=== PATIENT | female | born 1990 | race Caucasian/White ===

== ENCOUNTER 2021-08-06 14:36 | Inpatient (IN) | payer BC, OTHER ==
[~2021-08-06] VITALS: Ht 175.3 cm; Wt 99.0 kg
[2021-08-06] MEDS ORDERED: PLEASE ENTER HEIGHT AND WEIGHT MC SCH ×2 (14:53→15:00)
[2021-08-06] MEDS ORDERED: TERBUTALINE 1 MG/ML, 1ML SQ PRN (15:00)
[2021-08-06] MEDS ORDERED: ONDANSETRON 2MG/ML, 2ML IVPush PRN (15:00)
[2021-08-06] MEDS ORDERED: OXYTOCIN 30U/ 0.9% NaCL 500ML 500 ML IV ONE (15:00)
[2021-08-06] MEDS ORDERED: SODIUM CHLORIDE FLUSH 10ML SYR IVF PRN (15:00)
[2021-08-06] MEDS ORDERED: FENTANYL PF 100 MCG/2ML IV PRN (15:00)
[2021-08-06] MEDS ORDERED: LACTATED RINGERS 1,000 ML IV SCH (15:00)
[2021-08-06] MEDS ORDERED: TERBUTALINE 1 MG/ML, 1ML IVPush PRN (15:00)
[2021-08-06 15:17] LABS: BASOPHILS % (AUTO) 0 % (0-1); EOSINOPHILS % (AUTO) 0 % (1-7); LYMPHOCYTES % (AUTO) 22 % (22-44); MEAN CORPUSCULAR HEMOGLOBIN 32.1 pg (27.0-34.8); MEAN CORPUSCULAR HGB CONC 35.7 g/dL (32.4-35.8); MEAN PLATELET VOLUME 6.8 fL (7.4-10.4); MONOCYTES % (AUTO) 7 % (2-9); NEUTROPHILS % (AUTO) 70 % (42-75); PLATELET COUNT 259 x10^3/uL (130-400); RED BLOOD COUNT 4.09 x10^6/uL (3.82-5.3); RED CELL DISTRIBUTION WIDTH 13.5 % (9.6-15.2)
[2021-08-06 15:24] LABS: MICROSCOPIC INDICATED
[2021-08-06 15:25] LABS: ALANINE AMINOTRANSFERASE 23 U/L (12-78); ANION GAP 9 mmol/L (5-15); CALCIUM 8.2 mg/dL (8.5-10.1); CHLORIDE 110 mmol/L (98-107); CREATININE 0.57 mg/dL (0.55-1.02)
[2021-08-06 15:27] LABS: ALKALINE PHOSPHATASE 139 U/L (45-117); BILIRUBIN,TOTAL 0.1 mg/dL (0.2-1.0); TOTAL PROTEIN 6.6 g/dL (6.4-8.2)
[2021-08-06] MEDS ORDERED: MISOPROSTOL 200 MCG TABLET ONE (16:12)
[2021-08-06] MEDS ORDERED: LIDOCAINE 1%, 20ML ONE (16:12)
[2021-08-06] MEDS ORDERED: MISOPROSTOL 25 MCG TABLET ONE (16:12)
[2021-08-06] MEDS ORDERED: NEWBORN KIT ONE (16:12)
[2021-08-06] MEDS: MISOPROSTOL 25 MCG TABLET VG PRN ×2 (16:20→20:48)
[2021-08-06 16:29] VITALS: BP 125/79
[2021-08-06] MEDS ORDERED: PENICILLIN GK 5,000,000 UNITS in DEXTROSE 5% 100 ML IVPB ONE (16:30)
[2021-08-06] MEDS ORDERED: ACETAMINOPHEN 325 MG TABLET ONE (19:53)
[2021-08-06] MEDS: ACETAMINOPHEN 325 MG TABLET PO PRN (19:54)
[2021-08-07] MEDS: MISOPROSTOL 25 MCG TABLET VG PRN (01:07)
[2021-08-07] MEDS: ACETAMINOPHEN 325 MG TABLET PO PRN (01:59)
[2021-08-07] MEDS: FENTANYL PF 100 MCG/2ML IVPush PRN ×3 (06:20→08:41)
[2021-08-07] MEDS ORDERED: FENTANYL/BUPIV./NS/PF 250 ML EPIDCONT ONE (08:45)
[2021-08-07] MEDS ORDERED: LIDOCAINE/PF 1.5%-EPI 1:200K, 30ML ONE (08:46)
[2021-08-07] MEDS: PENICILLIN GK 2,500,000 UNITS in DEXTROSE 5% 100 ML IVPB SCH ×2 (10:51→18:44)
[2021-08-08] MEDS ORDERED: CARBOPROST TROMETHAMINE 250 MCG/ML, 1ML IM PRN (01:00)
[2021-08-08] MEDS: OXYTOCIN 30U/ 0.9% NaCL 500ML 500 ML IV SCH ×3 (01:00→21:00)
[2021-08-08] MEDS ORDERED: SIMETHICONE 80 MG CHEW TAB PO PRN (01:00)
[2021-08-08] MEDS ORDERED: OXYcodone/APAP 5/325MG TABLET PO PRN ×2 (01:00)
[2021-08-08] MEDS ORDERED: RHOGAM FROM BLOOD BANK 1 NOTE EA IM/IV ONE (01:00)
[2021-08-08] MEDS ORDERED: DIPH,PERTUSS(ACELL),TET VAC/PF NC IM-VACC PRN (01:00)
[2021-08-08] MEDS ORDERED: MISOPROSTOL 200 MCG TABLET PR PRN (01:00)
[2021-08-08] MEDS ORDERED: ACETAMINOPHEN 325 MG TABLET PO PRN (01:00)
[2021-08-08 02:40] VITALS: BP 113/61
[2021-08-08] MEDS: IBUPROFEN 600 MG TABLET PO PRN ×3 (03:02→19:58)
[2021-08-08 05:15] VITALS: BP 110/70
[2021-08-08 07:10] VITALS: BP 129/78
[2021-08-08] MEDS: DOCUSATE 100 MG CAPSULE PO PRN ×2 (08:21→19:58)
[2021-08-08] MEDS: PRENATAL VIT/IRON/FA 1 EACH TABLET PO SCH (08:21)
[2021-08-08 08:24] LABS: BASOPHILS % (AUTO) 0 % (0-1); EOSINOPHILS % (AUTO) 0 % (1-7); LYMPHOCYTES % (AUTO) 15 % (22-44); MEAN CORPUSCULAR HEMOGLOBIN 31.9 pg (27.0-34.8); MEAN CORPUSCULAR HGB CONC 35.3 g/dL (32.4-35.8); MEAN PLATELET VOLUME 6.7 fL (7.4-10.4); MONOCYTES % (AUTO) 7 % (2-9); NEUTROPHILS % (AUTO) 78 % (42-75); PLATELET COUNT 208 x10^3/uL (130-400); RED BLOOD COUNT 3.71 x10^6/uL (3.82-5.3); RED CELL DISTRIBUTION WIDTH 13.7 % (9.6-15.2)
[2021-08-08 11:53] VITALS: BP 116/69
[2021-08-08 16:23] VITALS: BP 114/77
[2021-08-08 19:48] VITALS: BP 137/89
[2021-08-09 00:08] VITALS: BP 108/74
[2021-08-09] MEDS: IBUPROFEN 600 MG TABLET PO PRN ×2 (01:56→08:13)
[2021-08-09 08:00] VITALS: BP 108/74
[2021-08-09] MEDS: DOCUSATE 100 MG CAPSULE PO PRN (08:12)
[2021-08-09] MEDS: PRENATAL VIT/IRON/FA 1 EACH TABLET PO SCH (08:13)
[2021-08-09] MEDS ORDERED: IBUP-1222 PO (09:22)
== END 2021-08-09 12:15 | disposition home or self-care (01) | DRG 806 ==
LOC: LDIP 14:36 → 2NW 08-08 02:35
PROVIDERS: ADMIT Student in an Organized Health Care Education/Training Program; ATTEND Student in an Organized Health Care Education/Training Program
PROC: 10E0XZZ Delivery of Products of Conception, External Approach (ICD-10-PCS; principal; 2021-08-08)
PROC: 3E0R3BZ Introduction of Anesthetic Agent into Spinal Canal, Percutaneous Approach (ICD-10-PCS; 2021-08-08)
PROC: 00HU33Z Insertion of Infusion Device into Spinal Canal, Percutaneous Approach (ICD-10-PCS; 2021-08-08)
PROC: 3E0234Z Introduction of Serum, Toxoid and Vaccine into Muscle, Percutaneous Approach (ICD-10-PCS; 2021-08-08)
DX: O13.4 Gestational [pregnancy-induced] hypertension without significant proteinuria, complicating childbirth (principal); O41.03X0 Oligohydramnios, third trimester, not applicable or unspecified; Z37.0 Single live birth; J45.909 Unspecified asthma, uncomplicated; A59.9 Trichomoniasis, unspecified; O26.893 Other specified pregnancy related conditions, third trimester; O99.52 Diseases of the respiratory system complicating childbirth; Z20.822 Contact with and (suspected) exposure to COVID-19; O99.824 Streptococcus B carrier state complicating childbirth; Z3A.37 37 weeks gestation of pregnancy; Z67.91 Unspecified blood type, Rh negative
CPT/HCPCS: 36415; J3490; 80053; 81001; 82570; 84156; 85025; 85461; 86592; 86850; 86900; 87635; G0378; J2540; J2790; J3010; J2590